=== PATIENT | male | born 1975 | race Caucasian/White ===

== ENCOUNTER 2019-07-17 02:07 | Emergency (ER) | payer SELFPAY ==
[~2019-07-17] VITALS: Ht 180.3 cm; Wt 86.2 kg
[2019-07-17 02:29] VITALS: BP 115/75
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
== END 2019-07-17 05:30 | disposition home or self-care (01) ==
LOC: EMR 02:18
DX: F91.9 Conduct disorder, unspecified (principal); G40.909 Epilepsy, unspecified, not intractable, without status epilepticus; F31.9 Bipolar disorder, unspecified; F25.9 Schizoaffective disorder, unspecified; E03.9 Hypothyroidism, unspecified; F17.200 Nicotine dependence, unspecified, uncomplicated; Z88.0 Allergy status to penicillin
CPT/HCPCS: 99282